=== PATIENT | male | born 1990 | race Caucasian/White ===

== ENCOUNTER 2025-04-17 14:53 | Outpatient (AMB) | payer OTHER, SELFPAY ==
--- OUTSIDE RECORDS SUMMARY | 2025-04-17 14:56 | XMS_ITS ---
Author Organization [facility] Address [address] [facility] [address] [place] [address] Care Team Providers Care Hse Specialist Name Role Phone GENI DOHERTY Unavailable [phone] REASON FOR VISIT Backpain throw it out yesterday picking his daughter up/ asking for refills on cyclobenzaprine/ ketorolac 10 mgs/ patient took one 10 mg at 1 pm MEDICATIONS Medication SIG (Take, Route, Frequency, Duration) Notes Start Date End Date Status Ketorolac Tromethamine 10 MG 1 tablet food or milk as needed Orally three times a day for 10 days Active Cyclobenzaprine HCl 10 MG 1 tablet Orall y Three times a day for 30 days Active PROBLEMS Problem Type ICD Code Onset Dates Problem Status W/U Status Risk SNOMED Code Notes Problem Chronic pain (G89.29) Active confirmed Chronic pain (04433920) VITAL SIGNS Temperature 98.7 degrees Fahrenheit 12/29/19 24 Blood pressure systolic 140 mm Hg 12/29/19 24 Blood pressure diastolic 80 mm Hg 024 Heart Rate 71 /min 12/29/2023 Respiratory Rate 18 /min 12/29/2023 Height 73 in 12/29/2023 Weight 187 lbs 12/29/2023 BMI 24.67 kg/m2 12/29/2023 Oximetry 99 % 12/29/2023 Encounters Encounter Location Date Provider Diagnosis [facility] [address] [facility] [address] [place] [address] 12/29/2023 GENI DOHERTY Acute back pain, unspecified back location, unspecified back pain laterality M54.9 and Chronic pain G89.29 ASSESSMENTS Encounter Date Diagnosis Assessment Notes Treatment Notes Treatment Clinical Notes Section Notes 12/29/2023 Acute back pain, unspecified back location, unspecified back pain laterality (ICD-10 - M54.9) 12/29/2023 Chronic pain (ICD-10 - G89.29) PLAN OF TREATMENT Medication Medication Name Sig Start Date Stop Date Notes Ketorolac Tromethamine 10 MG 1 tablet wi th food or milk as needed Orally three times a day for 10 days Cyclobenzaprine HCl 10 MG 1 tablet Orall y Three times a day for 30 days Progress Notes * EDIE LORENZO DDOB:1990 (33 yo M)Acc No.[id number]:12/29/2023 Progress Notes Patient:??EDIE LORENZO D Provider:??Geni Doherty PA-C :1990?Age:33 Y?Sex:Enedina le Date:12/29/2023 Address:[address] [place] [address] , [id number] Subjective: * Chief Complaints: * ?Backpain throw it out yesterday picking his daughter up/ asking for refills on cyclobenzaprine/ ketorolac 10 mgs/ patient took one 10 mg at 1 pm * ROS:?General/Constitutional:?Change in appetite??denies.??Chills??denies.??Fever??denies.?Ophthalmologic:?Blurred vision??denies.??Discharge??denies.??Eye Pain??denies.?ENT:?Decreased hearing??denies.??Sore throat??denies.??Swollen glands??denies.?Respiratory:?Patient complaining of??Congestion.??Cough??denies.??Shortness of breath at rest??denies.??Shortness of breath with exertion??denies.??Wheezing??denies.?Cardiovascular:?Chest pain at rest??denies.??Chest pain with exertion??denies.??Irregular heartbeat??denies.??Shortness of breath??denies.?Gastrointestinal:?Abdominal pain??denies.??Diarrhea??denies.??Nausea??denies.??Vomiting??denies .?Genitourinary:?Blood in urine??denies.??Difficulty urinating??denies.??Frequent urination??denies.?Musculoskeletal:?Painful joints??denies.??Weakness??denies.?Skin:?Dry skin??denies.??Itching??denies.??Rash??denies.?Neurologic:?Dizziness??denies.??Fainting??denies.??Headache??denies.? * Medical History:?? * Surgical History:??No Surgic al History documented. * Hospitalization/Major Diagno stic Procedure:??No Hospitalization History. * Family History:??No Family H istory documented..?? * Medications:??TakingCycloben zaprine HCl Ketorolac Tromethamine 10 MG Tablet 1 tablet with food or milk as needed Orally every 6 hrs Medication List reviewed and reconciled with the patientTaking Cyclobenzaprine HCl Taking Ketorolac Tromethamine 10 MG Tablet 1 tablet with food or milk as needed Orally every 6 hrs Medication List reviewed and reconciled with the patient * Allergies:??no[Allergies Jerry ified] Objective: * Vitals:??Temp:98.7F, HR:71/m in, BP:140/80mm Hg, Wt:187lbs, BMI:24.67Index, Ht: 73 in, RR:18/min, Oxygen sat %:99%, Ht-cm: 185.42, Wt-k.82. * Examination: ?General Examination: ?GENERAL APPEARANCE:??well developed, well nourished, in no acute distress.?HEAD:??normocephalic, atraumatic.?pupils equal, round, reactive to light and accommodation, sclera non-icteric.?EARS:??normal, BOTH EARS, auditory canal clear, tympanic membrane intact, clear.?THROAT:??no erythema, no exudate, pharynx normal, tonsils normal, uvula midline.?NECK/THYROID:??neck supple, full range of motion, no cervical lymphadenopathy.?SKIN:??warm and dry, no suspicious lesions.?HEART:??regular rate and rhythm, S1, S2 normal, no murmurs.?LUNGS:??clear to auscultation bilaterally.?ABDOMEN:??soft, nontender, nondistended, bowel sounds present, normal.?EXTREMITIES:??no clubbing, cyanosis, or edema.?NEUROLOGIC:??nonfocal, motor strength normal upper and lower extremities, sensory exam intact.? Assessment: * Assessment: 1.??Chronic pain - G89.29??2 .??Acute back pain, unspecified back location, unspecified back pain laterality - M54.9 (Primary)?? Plan: * Treatment: * Procedure Codes:?? * Images: Billing Information: * Visit Code:?? 13636 Office Visit, Est Pt., Level 4. * Procedure Codes:?? * PERSON Sign off status: Completed true * Provider:??Geni Doherty PA-C Date:??12/02 History and Physical Notes * Examination Category Sub-Category Detail Notes Category Not es General Examination GENERAL APPEARANCE: well dev eloped, well nourished, in no acute distress HEAD: normocephalic, atrau matic pupils equal, round, reactive to light and accommodation, sclera non-icteric EARS: normal, BOTH EARS, a uditory canal clear, tympanic membrane intact, clear THROAT: no erythema, no exud ate, pharynx normal, tonsils normal, uvula midline NECK/THYROID: neck supple, full ra nge of motion, no cervical lymphadenopathy HEART: regular rate and rhy thm, S1, S2 normal, no murmurs LUNGS: clear to auscultatio n bilaterally ABDOMEN: soft, nontender, non distended, bowel sounds present, normal NEUROLOGIC: nonfocal, motor stre ngth normal upper and lower extremities, sensory exam intact SKIN: warm and dry, no ac picious lesions EXTREMITIES: no clubbing, cyanosi s, or edema ORAL CAVITY:
--- OUTSIDE RECORDS SUMMARY | 2025-04-17 14:56 | XMS_ITS | Patient Health Record ---
Author Organization [facility] Address [address] [facility] [address] [place] [address] Care Team Providers Care Industrial Illuminating Engineer Name Role Phone GENI DOHERTY Unavailable [phone] ALLERGIES No Known Allergies REASON FOR REFERRAL No Information MEDICATIONS Medication SIG (Take, Route, Frequency, Duration) [...] W/U Status Risk SNOMED Code Notes Problem Anxiety (F41.9) Active confirmed Anxiet y (75066904) Problem Chronic pain (G89.29) Active confirmed Chronic pain (61911257) Problem Anxiety, generalized (F41.1) Active confirmed PLAN OF TREATMENT Pending Test Test Name Order Date CBC With Differential/Platelet Comp. Metabolic Panel (14) 03/23/2023 Insurance Providers Payer Name Payer Address Payer Phone Subscriber Number Group Number Insured Name Patient Relationship to Insured Coverage Start Date Coverage End Date [facility] [address] [place] [address] [phone] [id number] EDIE LORENZO Self - patient is the insured MEDICAL (GENERAL) HISTORY Medical History History ICD Code consistently throwing back out Surgical History Surgery Date(Month/Year)
--- NOTE | 2025-04-17 15:00 | A.OFFPC_ITS ---
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 Required: No Accompanied by: Self / Same As Patient Allergies No Known Allergies Allergy (Verified 04/17/25 15:16) Medication List - Last Reconciled 04/17/25 by Minerva Anton PA-C No Known Home Meds Tobacco use date assessed: 04/17/25 Dental Screening Dental Screen Date: 04/17/25 Did you have a dental visit in the last 12 months?: Yes Did you have a dental problem in the last 6 months where you did not have access to dental care?: No Was dental information given to patient?: Patient has dentist HPI establish care HPI Details The patient is a 34-year-old male presenting elevation new primary care provider patient has a medical history of chronic lower back pain, documented as secondary to lumbar disc herniation. The patient details a history of back pain originating from a lumbar disc herniation at the L5-S1 level, confirmed by MRI findings a year prior. This has manifested with a 5 mm broad-based herniated disc causing lumbar lordosis straightening due to muscle spasm, as well as superimposed bulging discs and an annular tear. Notably, the patient denies experiencing any numbness or incontinence and has not undergone surgical interventions. His pain management strategy includes regular physical therapy, steering clear of high-impact activities, and engaging in biking routines. Cortisone injections were suggested, but the patient currently opts for conservative treatment. The patient also has a history of left knee pain, attributed to a partial medial meniscus tear and anterior cruciate ligament (ACL) sprain, diagnosed via MRI without contrast. This was characterized by a grade two sprain with joint effusion. Additionally, he reports anxiety, which initially developed after the of his daughter and intensified following a friend's from cardiac arrest. Concerns about personal health are heightened by family history of colon cancer and melanoma, contributing to his health-conscious lifestyle choices. 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 - Substance Use: Engages in moderate con sumption of alcohol on weekends. - Exercise: Partakes in regular biking a nd low-impact exercises to manage back and knee pain. - Nutrition: Reports a healthy diet avoi ding unhealthy food choices. - Psychosocial: Reports anxiety associat ed with personal health concerns and family responsibilities. [facility] Medical History (Updated 04/17/25 @ 15:44 by Minerva Anton PA-C) Anxiety Colon cancer screening ACL sprain Tear of meniscus of left knee Chronic low back pain Establishing care with new doctor, encounter for Family history of colon cancer Family history of melanoma Atypical nevi Family History Father BP (high blood pressure) Mother Family history of lung cancer Social History Housing: House Alcohol intake: current Alcohol intake frequency: a few times a week Patient Tobacco Use Status: Never used Tobacco service: Yes Current occupational status: employed Cognitive needs: No Hearing needs: No Vision needs: No Questionnaire PHQ-9 Over the last 2 weeks, how often have you been bothered by any of the following problems? 1. Little interest or pleasure in doing things: not at all 2. Feeling down, depressed, or hopeless: not at all 3. Trouble falling or staying asleep, or sleeping too much: not at all 4. Feeling tired or having little energy: not at all 5. Poor appetite or overeating: not at all 6. Feeling bad about yourself - or that you are a failure or have let yourself or your family down: not at all 7. Trouble concentrating on things, such as reading the newspaper or watching television: not at all 8. Moving or speaking so slowly that other people could have noticed. Or the opposite - being so fidgety or restless that you have been moving around a lot more than usual: not at all 9. Thoughts that you would be better off or of hurting yourself in some way: not at all Total score: 0 Depression Screening Interpretation: Negative Depression Screening Done: Yes 15605 - PHQ-9 Billing: Yes Source: Developed by Drs. Brody Porter, Trice Sneed, Fish Jones and colleagues, with an educational zeb from [employer]. Thrive Questionnaire Date Thrive assessed: 04/17/25 I am a: Patient What is your living situation today?: I have a steady place to live Within the past 12 months, did the food you bought not last and you didn't have the money to get more?: Never true Within the past 12 months, did you worry whether your food would run out before you got money to buy more?: Never true Do you have trouble paying for medicines?: No Do you have trouble getting transportation to medical appointments?: No Do you have trouble paying your heating and electricity bill?: No Do you have trouble taking care of your child, family member or friend?: No Do you have trouble with day-to-day activities such as bathing, preparing meals, shopping, managing finances, etc.?: No Are you currently unemployed and looking for a job?: No Are you interested in more education?: No Please select the resources that you would like help with: None THRIVE Score: 0 AUDIT C Alcohol Use Questionnaire (AUDIT-C) 1. How often do you have a drink containing alcohol?: 2-3 times a week 2. How many drinks containing alcohol do you have on a typical day when you are drinking?: 1 or 2 3. How often do you have six or more drinks on one occasion?: Never Total Score: 3 Score Reviewed/Action Taken: No DEANA-7 AMB Questionnaire DEANA-7 Date DEANA - 7 assessed: 04/17/25 Feeling nervous, anxious, or on edge: 1 = Several days Not being able to stop or control worryin = Several days Worrying too much about different things: 1 = Several days Trouble relaxin = Several days Being so restless that it is hard to sit still: 1 = Several days Becoming easily annoyed or irritable: 1 = Several days Feeling afraid as if something awful might happen: 1 = Several days Total DEANA-7 score (0-4 normal; 5-9 mild; 10-14 moderate; 15-21 severe): 7 Source: Developed by Drs. Brody Porter, Trice Sneed, Fish Jones and colleagues, with an educational zeb from [employer] DEANA-7 Assessment Billing DEANA-7 Assessment Tool: DEANA-7 Assessment 99087 Review of Systems Const Details: - Musculoskeletal: Reports chronic lower back pain and left knee issues. - Neurological: Denies numbness in the lower extremities or incontinence. - Psychiatric: Reports situational anxiety. - Gastrointestinal: Family history of colon cancer (patient denies symptoms). - Integumentary: Family history of melanoma; recent skin check (patient denies current symptoms). Physical exam (Primary Care) Vital Signs: Last Vital Signs Temp 98.5 F 04/17/25 15:04 Pulse 66 04/17/25 15:04 Resp 14 04/17/25 15:04 BP 136/64 04/17/25 15:04 Pulse Ox 100 04/17/25 15:04 Oxygen Delivery Method Room Air 04/17/25 15:04 Care Plan Goal for BP management: <140/90 at Goal BMI result Body Mass Index 24.8 normal bmi Tobacco/Smoking Status: Tobacco use Status Tobacco use date assessed 04/17/25 04/17/25 15:11 Patient Tobacco Use Status Never used Tobacco 04/17/25 15:11 PHQ-9: PHQ-9 Score PHQ-9: Total score 0 04/17/25 15:11 Depression Screening Interpretation: Negative Thrive Assessment: Date of Thrive Assessment Date Thrive assessed 04/17/25 04/17/25 15:11 Const Other: Appearance: Alert. Oriented X3. No acute distress. Head: Normal external exam. Normocephalic. Atraumatic. Eyes: Pupils are equal, round, and reactive to light. Extraocular movements intact. Conjunctiva and sclera normal. Eyelids normal. Ears: External auditory canal normal. Tympanic membranes normal. Throat: Pharynx normal. Uvula midline. Moist mucous membranes. Neck: Normal inspection. Neck supple. Full range of motion. No adenopathy. Thyroid Normal. No meningeal signs. No neck mass noted. Cardiovascular: Normal heart rate and rhythm. Heart sound normal. No murmurs noted. Pulses normal throughout. Respiratory: No respiratory distress. Painless inspiration. Breath sounds normal. No wheezes/rales/rhonchi noted. Chest nontender. No accessory muscle usage noted or decreased air movement noted. Abdomen: Soft and nontender. Bowel sounds normal in all 4 quadrants. No distention noted. No organomegaly noted. No visible injury noted. Back: No costovertebral angle tenderness. Full range of motion noted. Chronic back pain due to subchondral bone marrow edema, straightening of the lumbar lordosis compatible with muscle spasm, L5-S1 broad base herniated disc, and annular tear with broad base herniated disc. Skin: Skin warm and dry. Normal skin color. Normal skin turgor. No rashes/lesions/lacerations noted. Extremities: No lower extremity edema. Left knee with partial medial meniscus tear, sprain of the ACL, and small knee joint effusion. Otherwise all other extremities exhibit normal range of motion nontender. Neuro: Oriented X 3. No motor deficit. No sensory deficit. Reflexes normal. Results Reviewed Results Reviewed: - MRI: Lumbar Spine MRI showing 5 mm broad-based herniated disc at L5-S1, straightening of lumbar lordosis, superimposed bulging discs, and annular tear. Left Knee MRI indicating partial medial meniscus tear and ACL sprain. - Family History Influence: Noted for colon cancer and melanoma risk evaluation. Coding Level of Care Code New Pt Level 4 (33962) Complex EM visit Add On G2211 Diagnoses Establishing care with new doctor, encounter for Z76.89 Family history of colon cancer Z80.0 Family history of melanoma Z80.8 Atypical nevi D22.9 Chronic low back pain M54.50; G89.29 Tear of meniscus of left knee S83.207A ACL sprain S83.519A Anxiety F41.9 Colon cancer screening Z12.11 Additional Codes PHQ-9 - 58170 - PHQ-9 Billing: Yes ([id number]) DEANA-7 Assessment Billing - DEANA-7 Assessment Tool: DEANA-7 Assessment 39858 ([id number]) Assessment & Plan Assessment & Plan (1) Establishing care with new doctor, encounter for: Code(s): Z76.89 - Persons encountering health services in other specified circumstances Category: Medical (2) Family history of colon cancer: Code(s): Z80.0 - Family history of malignant neoplasm of digestive organs Category: Medical Plan: A cologuard test will screen for colorectal cancer, and a dermatology referral supports evaluation for melanoma risk, in light of family history. (3) Family history of melanoma: Code(s): Z80.8 - Family history of malignant neoplasm of other organs or systems Category: Medical Plan: A dermatology referral placed at this time. Condition is chronic and stable continue to monitor. (4) Atypical nevi: Code(s): D22.9 - Melanocytic nevi, unspecified Category: Medical Plan: A dermatology referral placed at this time. Condition is chronic and stable continue to monitor. (5) Chronic low back pain: Code(s): M54.50 - Low back pain, unspecified; G89.29 - Other chronic pain Category: Medical Plan: The patient's lower back pain is managed through physical therapy addressing the herniated disc's symptoms. Avoidance of high-impact activities continues, with surgical consultation considered only if conservative methods fail. Condition is chronic and stable continue to monitor. (6) Tear of meniscus of left knee: Code(s): S83.207A - Unspecified tear of unspecified meniscus, current injury, left knee, initial encounter Category: Medical Plan: Current treatment involves physical therapy. Activities that stress the knee joint are to be minimized, with future interventions considered if conservative strategies prove inadequate. Condition is chronic and stable will continue to monitor. (7) ACL sprain: Code(s): S83.519A - Sprain of anterior cruciate ligament of unspecified knee, initial encounter Category: Medical Plan: Current treatment involves physical therapy. Activities that stress the knee joint are to be minimized, with future interventions considered if conservative strategies prove inadequate. Condition is chronic and stable will continue to monitor. (8) Anxiety: Code(s): F41.9 - Anxiety disorder, unspecified Category: Medical Plan: Anxiety is being managed through lifestyle adjustments and monitoring; potential for therapy or medication if symptoms worsen is noted. Condition is chronic and stable continue to monitor. (9) Colon cancer screening: Code(s): Z12.11 - Encounter for screening for malignant neoplasm of colon Category: Medical Plan: A Cologuard test will screen for colorectal cancer, and a dermatology referral supports evaluation for melanoma risk, in light of family history. Plan Plan Patient was informed and verbally consented to the use of an ambient scribe for clinic note documentation during this visit. 1. Chronic Lower Back Pain The patient's lower back pain is managed through physical therapy addressing the herniated disc's symptoms. Avoidance of high-impact activities continues, with surgical consultation considered only if conservative methods fail. 2. Left Knee Meniscus Tear And Acl Sprain Current treatment involves physical therapy. Activities that stress the knee joint are to be minimized, with future interventions considered if conservative strategies prove inadequate. 3. Anxiety Anxiety is being managed through lifestyle adjustments and monitoring; potential for therapy or medication if symptoms worsen is noted. 4. Colon Cancer And Melanoma Screening A Cologuard test will screen for colorectal cancer, and a dermatology referral supports evaluation for melanoma risk, in light of family history. I discussed with the patient his chronic lower back pain and left knee issues. We reviewed existing MRI findings indicating lumbar herniation and knee sprain and outlined a conservative treatment approach with physical therapy as a cornerstone. We discussed avoiding injections and holding off on surgical intervention unless symptoms worsen. We touched on anxiety management strategies, considering family health conditions and connections. Screening for colon cancer using a Cologuard test was explained, reflecting the family history, and a dermatology referral was provided for melanoma screening. I emphasized moderation and vigilance in lifestyle choices to support health maintenance. The patient is advised to follow up in six months or as needed for acute concerns, ensuring comfort with this management plan. Orders: Orders C Reactive Protein Today Z00.00 - Encounter for general adult medical examination without abnormal findings Complete Blood Count Auto Diff Today Z00.00 - Encounter for general adult medical examination without abnormal findings Comprehensive [place]. Panel Fast Today Z00.00 - Encounter for general adult medical examination without abnormal findings Lipid Panel Today Z00.00 - Encounter for general adult medical examination without abnormal findings PSA,Total (Free>4and<10) Today Z00.00 - Encounter for general adult medical examination without abnormal findings TSH reflex Free T4 Today Z00.00 - Encounter for general adult medical examination without abnormal findings Magnesium Today Z00.00 - Encounter for general adult medical examination without abnormal findings Liver Panel Today Z00.00 - Encounter for general adult medical examination without abnormal findings Hemoglobin A1c Today Z00.00 - Encounter for general adult medical examination without abnormal findings Vitamin B12 and Folate Today Z00.00 - Encounter for general adult medical examination without abnormal findings Vitamin D 25-OH Total Today Z00.00 - Encounter for general adult medical examination without abnormal findings Referrals Dermatology Referral D22.9 - Melanocytic nevi, unspecified, Z80.8 - Family history of malignant neoplasm of other organs or systems Cologuard Test Z12.11 - Encounter for screening for malignant neoplasm of colon, Z12.12 - Encounter for screening for malignant neoplasm of rectum Patient Instructions: - Continue physical therapy for back and knee pain. - Avoid heavy lifting and high-impact activities. - Practice stress reduction techniques for anxiety. - Follow a healthy diet and limit alcohol consumption to weekends. - Schedule colon cancer screening test as advised. - Contact a fiber optics supervisor for skin evaluation. - Return for routine check-ups or sooner if symptoms change.
[2025-04-17 15:04] VITALS: BP 136/64; PULSE 66; RESP 14; TEMP 36.9; O2SAT 100; BMI 24.8
== END 2025-04-17 15:36 | disposition home or self-care (01) ==
LOC: HO.HMCSH 14:53
PROVIDERS: PCP Internal Medicine; Visit Provider Physician Assistant Medical
DX: Z76.89 Persons encountering health services in other specified circumstances (principal); Z80.0 Family history of malignant neoplasm of digestive organs; Z80.8 Family history of malignant neoplasm of other organs or systems; D22.9 Melanocytic nevi, unspecified; M54.50 Low back pain, unspecified; G89.29 Other chronic pain; S83.207A Unspecified tear of unspecified meniscus, current injury, left knee, initial encounter; S83.519A Sprain of anterior cruciate ligament of unspecified knee, initial encounter; F41.9 Anxiety disorder, unspecified; Z12.11 Encounter for screening for malignant neoplasm of colon

== ENCOUNTER → 2025-04-17 14:53 | Outpatient (BNVA) | payer OTHER, SELFPAY | PROVIDERS: PCP Internal Medicine; Visit Provider Physician Assistant Medical | DX: D22.9 Melanocytic nevi, unspecified (principal); M54.50 Low back pain, unspecified; G89.29 Other chronic pain; F41.9 Anxiety disorder, unspecified; S83.207D Unspecified tear of unspecified meniscus, current injury, left knee, subsequent encounter; S83.512D Sprain of anterior cruciate ligament of left knee, subsequent encounter; Z76.89 Persons encountering health services in other specified circumstances; Z80.0 Family history of malignant neoplasm of digestive organs; Z80.8 Family history of malignant neoplasm of other organs or systems | CPT/HCPCS: 96127; 99202 ==

== ENCOUNTER 2025-04-20 06:07 | Outpatient (REF) | payer OTHER, SELFPAY ==
--- OUTSIDE RECORDS SUMMARY | 2025-04-20 06:12 | XMS_ITS | Patient Health Record ---
Author Organization [facility] Address [address] [place] [address] Care Team Providers Care Physical Science Technician Name Role Phone GENI DOHERTY Unavailable [phone] ALLERGIES No Known Allergies REASON FOR REFERRAL [...] Problem Anxiety (F41.9) Active confirmed Anxiet y (04250966) Problem Chronic pain (G89.29) Active confirmed Chronic pain (20932238) Problem Anxiety, generalized (F41.1) Active confirmed Generalized anxiety disorder (96496006) PLAN OF TREATMENT Pending Test Test Name Order Date CBC With Differential/Platelet Comp. Metabolic Panel (14) 03/23/2023 Insurance Providers Payer Name Payer Address Payer Phone Subscriber Number Group Number Insured Name Patient Relationship to Insured Coverage Start Date Coverage End Date [facility] [address] [place] [address] [id number] EDIE LORENZO Self - patient is the insured MEDICAL (GENERAL) HISTORY Medical History History ICD Code consistently throwing back out Surgical History Surgery Date(Month/Year)
--- OUTSIDE RECORDS SUMMARY | 2025-04-20 06:12 | XMS_ITS ---
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 Role Phone GENI DOHERTY Unavailable [phone] REASON FOR VISIT Backpain throw it out [...] Chronic pain (G89.29) Active confirmed Chronic pain (10269391) VITAL SIGNS Temperature 98.7 degrees Fahrenheit 12/29/19 24 Blood pressure systolic 140 mm Hg 12/29/19 24 Blood pressure diastolic 80 mm Hg 024 Heart Rate 71 /min 12/29/2023 Respiratory Rate 18 /min 12/29/2023 Height 73 in 12/29/2023 Weight 187 lbs 12/29/2023 BMI 24.67 kg/m2 12/29/2023 Oximetry 99 % 12/29/2023 Encounters Encounter Location Date Provider Diagnosis [facility] [address] [facility] [address] [place] [address] 12/29/2023 GENI DOHERTY Acute back pain, unspecified [...] * EDIE LORENZO DDOB:1990 (33 yo M)Acc No.[id number]:12/29/2023 Progress Notes Patient:??EDIE LORENZO D Provider:??Geni Doherty PA-C :1990?Age:33 Y?Sex:Enedina le Date:12/29/2023 Address:[address] [place] [address] , [facility] [id number] Subjective: * Chief Complaints: * ?Backpain throw [...] * Images: Billing Information: * Visit Code:?? 63938 Office Visit, Est Pt., Level 4. * Procedure Codes:?? * RIG ROUGHNECK Sign off status: Completed true * Provider:??Geni [...]
[2025-04-20 10:16] LABS: MANUAL DIFF FLAG NO
[2025-04-20 10:26] LABS: Basophils Absolute Auto 0.1 X10*3/uL (0.0-0.2); Basophils Percent Auto 1.5 % (0-2); Eosinophils Absolute Auto 0.3 X10*3/uL (0.0-0.4); Eosinophils Percent Auto 5.1 % (0-4); Hematocrit 42.6 % (42.0-52.0); Hemoglobin 14.8 g/dl (14.0-18.0); Imm Gran Abs Auto 0.01 X10*3/uL (0.00-0.03); Imm Gran Pct Auto 0.2 % (0.0-0.4); Lymphocytes Percent Auto 37.9 % (20-40); Mean Corpuscular HGB Conc 34.7 g/dl (31.0-36.0); Mean Corpuscular Hemoglobin 30.5 pg (27.0-33.0); Mean Corpuscular Volume 87.8 fL (80.0-98.0); Monocytes Absolute Auto 0.5 X10*3/uL (0.1-1.2); Monocytes Percent Auto 9.8 % (2-11); Neutrophils Absolute Auto 2.4 x10*3/uL (2.0-8.3); Neutrophils Percent Auto 45.5 % (45-73); Platelet Count 317 X10*3/uL (160-400); Red Blood Count 4.85 X10*6/uL (4.60-5.80); Red Cell Distribution Width 12.4 % (11.0-16.0); White Blood Count 5.3 X10*3/uL (4.8-10.8)
[2025-04-20 11:12] LABS: Estimated Average Glucose 85 mg/dL; Hemoglobin A1C 102.7785 umol/L; Hemoglobin A1c % 4.6 % (<6.0); Total Hemoglobin (HGBA1C) 3833.1061 umol/L
[2025-04-20 11:29] LABS: Folate 8.5 ng/mL (> or = 4.0); Vitamin B12 389 pg/mL (200-900)
[2025-04-20 11:33] LABS: Alanine Aminotransferase 36 U/L (0-40); Albumin Level 4.8 g/dL (3.5-5.0); Alkaline Phosphatase 57 U/L (39-117); Anion Gap 12 (12-20); Aspartate Amino Transferase 28 U/L (5-37); Bilirubin Direct 0.2 mg/dL (0.0-0.5); Bilirubin Total 0.6 mg/dL (0.0-1.0); Blood Urea Nitrogen 13 mg/dL (9-16); C Reactive Protein < 0.10 mg/dL (< or = 0.50); Calcium 9.8 mg/dL (8.4-10.2); Carbon Dioxide 27 mmol/L (22-29); Chloride 105 mmol/L (96-108); Cholesterol 219 mg/dL (<200); Estimated Glomerular Filt Rate > 60; Glucose Fasting 94 mg/dL (60-99); HDL Cholesterol 61 mg/dL (>40); LDL Cholesterol Calculated 132 mg/dL (<100); Potassium 4.1 mmol/L (3.3-5.1); Sodium 140 mmol/L (135-145); Total Protein 7.7 g/dL (6.5-8.0); Triglycerides 130 mg/dL (<150)
[2025-04-20 11:39] LABS: TSH reflex Free T4 2.16 uIU/mL (0.32-4.0); Vitamin D 25-OH Total 91.9 ng/mL (>30)
[2025-04-20 12:26] LABS: PSA,Total (Free>4and<10) 0.75 ng/mL (0.00-4.00)
== END 2025-04-20 06:08 | disposition home or self-care (01) ==
LOC: HO.HMGCLDS 06:07
PROVIDERS: Visit Provider Physician Assistant Medical
DX: Z00.00 Encounter for general adult medical examination without abnormal findings (principal); Z13.1 Encounter for screening for diabetes mellitus; Z13.6 Encounter for screening for cardiovascular disorders
CPT/HCPCS: 36415; 80053; 80061; 80076; 82248; 82306; 82607; 82746; 83036; 83735; 84153; 84443; 85025; 86140

== ENCOUNTER 2025-05-24 09:03 | Outpatient (AMB) | payer OTHER, SELFPAY ==
[2025-05-24 09:08] VITALS: BP 136/92; PULSE 74; RESP 20; TEMP 37.3; O2SAT 98; BMI 25.2
--- NOTE | 2025-05-24 09:08 | MHC.PC.OV ---
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 Required: No Accompanied by: Self / Same As Patient Allergies No Known Allergies Allergy (Verified 05/24/25 09:34) Medication List - Last Reconciled 05/24/25 by Minerva Anton PA-C No Known Home Meds Tobacco use date assessed: 04/17/25 Dental Screening Dental Screen Date: 04/17/25 Did you have a dental visit in the last 12 months?: Yes Did you have a dental problem in the last 6 months where you did not have access to dental care?: No Was dental information given to patient?: Patient has dentist HPI f/u back pain HPI Details The patient is a 35-year-old male presenting with chronic back pain,documented as secondary to lumbar disc herniation. The patient details a history of back pain originating from a lumbar disc herniation at the L5-S1 level, confirmed by MRI findings a year prior. This has manifested with a 5 mm broad-based herniated disc causing lumbar lordosis straightening due to muscle spasm, as well as superimposed bulging discs and an annular tear. Notably, the patient denies experiencing any numbness or incontinence and has not undergone surgical interventions. His pain management strategy includes regular physical therapy, steering clear of high-impact activities, and engaging in biking routines. Cortisone injections were suggested, but the patient currently opts for conservative treatment. The back pain has been significant enough to warrant physical therapy at [facility], although attendance has been limited due to other commitments. Recently, the has decided to medically separate the patient due to the back condition, which he has accepted as beneficial for his health. The patient is in the process of documenting his condition for medical prison and VA benefits. He requires a work restriction profile to outline his limitations due to the back injury. Social History - Employment: Currently employed but facing medical separation from the due to back pain. [facility] Medical History Annular tear of lumbar disc Lumbar disc herniation Pure hypercholesterolemia, unspecified Hyperlipidemia LDL goal <100 Anxiety Colon cancer screening ACL sprain Tear of meniscus of left knee Chronic low back pain Establishing care with new doctor, encounter for Family history of colon cancer Family history of melanoma Atypical nevi Family History Father BP (high blood pressure) Mother Family history of lung cancer Social History Housing: House Alcohol intake: current Alcohol intake frequency: a few times a week Patient Tobacco Use Status: Never used Tobacco service: Yes Current occupational status: employed Cognitive needs: No Hearing needs: No Vision needs: No Questionnaire PHQ-9 Over the last 2 weeks, how often have you been bothered by any of the following problems? 1. Little interest or pleasure in doing things: not at all 2. Feeling down, depressed, or hopeless: not at all 3. Trouble falling or staying asleep, or sleeping too much: not at all 4. Feeling tired or having little energy: not at all 5. Poor appetite or overeating: not at all 6. Feeling bad about yourself - or that you are a failure or have let yourself or your family down: not at all 7. Trouble concentrating on things, such as reading the newspaper or watching television: not at all 8. Moving or speaking so slowly that other people could have noticed. Or the opposite - being so fidgety or restless that you have been moving around a lot more than usual: not at all 9. Thoughts that you would be better off or of hurting yourself in some way: not at all Total score: 0 Depression Screening Interpretation: Negative Depression Screening Done: Yes 39891 - PHQ-9 Billing: Yes Source: Developed by Drs. Brody Porter, Trice Sneed, Fish Jones and colleagues, with an educational zeb from [employer] Thrive Questionnaire Date Thrive assessed: 04/17/25 I am a: Patient What is your living situation today?: I have a steady place to live Within the past 12 months, did the food you bought not last and you didn't have the money to get more?: Never true Within the past 12 months, did you worry whether your food would run out before you got money to buy more?: Never true Do you have trouble paying for medicines?: No Do you have trouble getting transportation to medical appointments?: No Do you have trouble paying your heating and electricity bill?: No Do you have trouble taking care of your child, family member or friend?: No Do you have trouble with day-to-day activities such as bathing, preparing meals, shopping, managing finances, etc.?: No Are you currently unemployed and looking for a job?: No Are you interested in more education?: No Please select the resources that you would like help with: None THRIVE Score: 0 AUDIT C Alcohol Use Questionnaire (AUDIT-C) 1. How often do you have a drink containing alcohol?: 2-3 times a week 2. How many drinks containing alcohol do you have on a typical day when you are drinking?: 1 or 2 3. How often do you have six or more drinks on one occasion?: Never Total Score: 3 Score Reviewed/Action Taken: No DEANA-7 AMB Questionnaire DEANA-7 Date DEANA - 7 assessed: 04/17/25 Feeling nervous, anxious, or on edge: 1 = Several days Not being able to stop or control worryin = Several days Worrying too much about different things: 1 = Several days Trouble relaxin = Several days Being so restless that it is hard to sit still: 1 = Several days Becoming easily annoyed or irritable: 1 = Several days Feeling afraid as if something awful might happen: 1 = Several days Total DEANA-7 score (0-4 normal; 5-9 mild; 10-14 moderate; 15-21 severe): 7 Source: Developed by Drs. Brody Porter, Trice Sneed, Fish Jones and colleagues, with an educational zeb from [employer] DEANA-7 Assessment Billing DEANA-7 Assessment Tool: DEANA-7 Assessment 47751 Physical exam (Primary Care) Vital Signs: Last Vital Signs Temp 99.1 F 05/24/25 09:08 Pulse 74 05/24/25 09:08 Resp 20 05/24/25 09:08 BP 136/92 H 05/24/25 09:08 Pulse Ox 98 05/24/25 09:08 Oxygen Delivery Method Room Air 05/24/25 09:08 BMI result Body Mass Index 25.2 Tobacco/Smoking Status: Tobacco use Status Tobacco use date assessed 04/17/25 05/24/25 09:18 Patient Tobacco Use Status Never used Tobacco 05/24/25 09:18 PHQ-9: PHQ-9 Score PHQ-9: Total score 0 05/24/25 09:18 Depression Screening Interpretation: Negative Thrive Assessment: Date of Thrive Assessment Date Thrive assessed 04/17/25 05/24/25 09:18 Const Other: Appearance: Alert. Oriented X3. No acute distress. Head: Normal external exam. Normocephalic. Atraumatic. Eyes: Pupils are equal, round, and reactive to light. Extraocular movements intact. Conjunctiva and sclera normal. Eyelids normal. Throat: Pharynx normal. Uvula midline. Moist mucous membranes. Neck: Normal inspection. Neck supple. Full range of motion. Cardiovascular: Normal heart rate and rhythm. Respiratory: No respiratory distress. Painless inspiration. Back: Full range of motion noted. Chronic back pain. Skin: Skin warm and dry. Normal skin color. Normal skin turgor. No rashes/lesions/lacerations noted. Extremities: Extremities exhibit normal range of motion. Neuro: Oriented X 3. No motor deficit. No sensory deficit. Reflexes normal. Coding Level of Care Code Est Pt Level 4 (96565) Complex EM visit Add On G2211 Diagnoses Chronic low back pain M54.50; G89.29 Lumbar disc herniation M51.26 Annular tear of lumbar disc M51.369 ACL sprain S83.519A Tear of meniscus of left knee S83.207A Additional Codes DEANA-7 Assessment Billing - DEANA-7 Assessment Tool: DEANA-7 Assessment 62821 ([id number]) PHQ-9 - 57018 - PHQ-9 Billing: Yes ([id number]) Assessment & Plan Assessment & Plan (1) Chronic low back pain: Code(s): M54.50 - Low back pain, unspecified; G89.29 - Other chronic pain Category: Medical Plan: The patient will continue with physical therapy as tolerated and is advised to document all medical interactions and treatments for VA benefits and medical prison purposes. A work restriction profile will be provided to outline limitations due to the back injury. Condition is chronic and stable will continue to monitor. (2) Lumbar disc herniation: Code(s): M51.26 - Other intervertebral disc displacement, lumbar region Category: Medical Plan: The patient will continue with physical therapy as tolerated and is advised to document all medical interactions and treatments for VA benefits and medical prison purposes. A work restriction profile will be provided to outline limitations due to the back injury. Condition is chronic and stable will continue to monitor. (3) Annular tear of lumbar disc: Code(s): M51.369 - Other intervertebral disc degeneration, lumbar region without mention of lumbar back pain or lower extremity pain Category: Medical Plan: The patient will continue with physical therapy as tolerated and is advised to document all medical interactions and treatments for VA benefits and medical prison purposes. A work restriction profile will be provided to outline limitations due to the back injury. Condition is chronic and stable will continue to monitor. (4) ACL sprain: Code(s): S83.519A - Sprain of anterior cruciate ligament of unspecified knee, initial encounter Category: Medical Plan: Patient will refer to PT therapy. Condition is chronic and stable will continue to monitor. (5) Tear of meniscus of left knee: Code(s): S83.207A - Unspecified tear of unspecified meniscus, current injury, left knee, initial encounter Category: Medical Plan: Patient will refer to PT therapy. Condition is chronic and stable will continue to monitor. Plan Plan Patient was informed and verbally consented to the use of an ambient scribe for clinic note documentation during this visit. 1. Chronic Back Pain The patient will continue with physical therapy as tolerated and is advised to document all medical interactions and treatments for VA benefits and medical prison purposes. A work restriction profile will be provided to outline limitations due to the back injury. During the visit, we discussed the patient's chronic back pain and the need for continued physical therapy. We also talked about the 's decision to medically separate him and the importance of documenting his condition for VA benefits and medical prison. A work restriction profile was deemed necessary to outline his limitations. Orders: Orders PT Evaluation and Treatment Today G89.29 - Other chronic pain, M54.50 - Low back pain, unspecified, S83.207A - Unspecified tear of unspecified meniscus, current injury, left knee, initial encounter, S83.519A - Sprain of anterior cruciate ligament of unspecified knee, initial encounter Patient Instructions: - Continue attending physical therapy sessions as scheduled. - Document all medical interactions and treatments for VA benefits and medical prison purposes. - Obtain a work restriction profile to outline limitations due to back injury.
--- OUTSIDE RECORDS SUMMARY | 2025-05-24 09:45 | XMS_ITS | Patient Health Record ---
Author Organization [facility] Address [address] [place] [address] Care Team Providers Care Tire Mounter Name Role Phone GENI DOHERTY Unavailable [phone] Allergies No Known Allergies Reason For Referral No Information Medications Medication SIG (Take, Route, Frequency, Duration) Notes Start Date End Date Status Ketorolac Tromethamine 10 MG 1 tablet wi th food or milk as needed Orally three times a day for 10 days Active Cyclobenzaprine HCl 10 MG 1 tablet Orall y Three times a day for 30 days Active Problems Problem Type SNOMED Code ICD Code Onset Dates Problem Status W/U Status Risk Notes Problem Anxiety (14804390) Anxiety (F41.9) Active confirmed Problem Chronic pain (G89.29) Active confirmed Problem Generalized anxiety disorder (83519876) Anxiety, generalized (F41.1) Active confirmed Plan Of Treatment Pending Test Test Name Order Date CBC With Differential/Platelet Comp. Metabolic Panel (14) 03/23/2023 Insurance Providers Payer Name Payer Address Payer Phone Subscriber Number Group Number Insured Name Patient Relationship to Insured Coverage Start Date Coverage End Date [facility] [address] [place] [address] [id number] EDIE LORENZO Self - patient is the insured Medical (General) History Medical History History ICD Code consistently throwing back out Surgical History Surgery Date(Month/Year)
== END 2025-05-24 09:33 | disposition home or self-care (01) ==
LOC: HO.HMCSH 09:03
PROVIDERS: PCP Internal Medicine; Visit Provider Physician Assistant Medical
DX: S83.512A Sprain of anterior cruciate ligament of left knee, initial encounter (principal); S83.207A Unspecified tear of unspecified meniscus, current injury, left knee, initial encounter; G89.29 Other chronic pain; M51.26 Other intervertebral disc displacement, lumbar region; M51.369 Other intervertebral disc degeneration, lumbar region without mention of lumbar back pain or lower extremity pain

== ENCOUNTER → 2025-05-24 09:03 | Outpatient (BNVA) | payer OTHER, SELFPAY | PROVIDERS: PCP Internal Medicine; Visit Provider Physician Assistant Medical | DX: M54.50 Low back pain, unspecified (principal); G89.29 Other chronic pain; M51.369 Other intervertebral disc degeneration, lumbar region without mention of lumbar back pain or lower extremity pain; S83.512D Sprain of anterior cruciate ligament of left knee, subsequent encounter; S83.207D Unspecified tear of unspecified meniscus, current injury, left knee, subsequent encounter | CPT/HCPCS: 96127; 99212 ==

== ENCOUNTER 2025-09-19 09:00 | Outpatient (RCR) | payer OTHER, SELFPAY ==
--- NOTE | 2025-07-10 08:44 | MHC.PT.EP ---
[facility] [place] [facility] [place] Office [place] Office [address] Kika Nelson [address] [phone] F: [phone] F: [phone] F: [phone] F: [phone] Physical Therapy Plan of Care Date of Evaluation: 07/10/25 Date of Surgery: n/a Diagnosis: ACL sprain, meniscus tear, L knee Assessment: Patient is a 35 year old male presenting to PT with complaints of pain in his L knee. Pt reports onset of pain began 2019 due to stepping off a plane. He presents today with impairments in pain, tenderness to palpation, knee strength, hip strength, muscle length . 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 Pt expresses skilled nursing goal of reducing pain, and is motivated to work towards this in PT. Clinical presentation today is most consistent with signs and sx associated with L knee ACL sprain, meniscus tear and pt will benefit from skilled PT 2 week x 4 weeks to address the following problems and impairments noted upon evaluation: palpation, knee strength, hip strength, muscle length. These problems limit the patient with the following functional activities: ADLs, standing, ambulating. The prescribed treatment plan of care is medically necessary. Co-morbidities of anxiety were identified and taken into considerations of plan of care. Pt was educated on HEP, role of PT, prognosis, POC. Frequency and Duration: The patient will be seen 2 x week x 4 weeks Short Term Goals: Pt will demonstrate improved pain to <2/10 at rest in 2 weeks. Pt will demonstrate 5/5 L knee MMT strength in 2 weeks. Pt will demonstrate improved hip MMT strength by 1/3 grade in 2 weeks. Penitentiary Goals: Pt will demonstrate improved LEFI score by 9 points in 4 weeks for improved functional mobility. Pt will demonstrate ability to ambulate prolonged distances with min to no pain in 4 weeks for return to PLOF. Pt will demonstrate ability to squat and complete ADLs with min to no pain in 4 weeks for return to PLOF. Treatment Plan: Modalities to reduce pain, spasms and effusion. Manual therapy to restore motion and function. Therapeutic exercise to improve strength and flexibility. Neuromuscular re-education for posture and balance. Therapeutic activities to return to functional activities of daily living. Electronically signed by: Addie Woods, PT, DPT, ATC Please sign and return to therapist. Thank you for your referral.
--- NOTE | 2025-09-19 10:19 | MHC.PT.DC ---
[facility] [place] Office [place] Office [place] Office [address] Kika Nelson [address] [phone] F: [phone] F: [phone] F: [phone] F: [phone] Physical Therapy Discharge Report Diagnosis: ACL sprain, meniscus tear, L knee Date of Surgery: n/a Date of Evaluation: 07/10/25 Date of Discharge: 09/19/25 Treatments to Date: 15 Cancellations to Date: 5 No Shows to Date: 0 Discharge Status: Independent with HEP Recommend MD Follow-up Discharge Summary: 09/19/2025: Pt has made some progress since start of care in terms of strength and soft tissue flexibility. Unfortunately he continues to have ongoing pain which is affecting his ability to ambulate, squat, negotiate stairs, work, and complete ADLs at his PLOF. He is especially sore when doing higher level activities. We have trialed a variety of treatment interventions during this course of therapy all without significant change in his functional status. At this time max benefits of PT have been provided and skilled PT is no longer indicated. Pt should continue with strengthening exercises to maintain all strength gains. Pt is in agreement with d/c today and is following up with his MD next week. Electronically signed by: Addie Woods, PT, DPT, ATC Please sign and return to therapist. Thank you for your referral.
== END 2025-09-19 10:20 | disposition home or self-care (01) ==
LOC: HO.PTCHIC 09:00
PROVIDERS: PCP Internal Medicine; Visit Provider Physician Assistant Medical
DX: S83.207D Unspecified tear of unspecified meniscus, current injury, left knee, subsequent encounter (principal); S83.519D Sprain of anterior cruciate ligament of unspecified knee, subsequent encounter
CPT/HCPCS: 97110; 97112; 97140; 97161

== ENCOUNTER 2025-09-25 09:00 | Outpatient (AMB) | payer OTHER, SELFPAY ==
[2025-09-25 09:09] VITALS: BP 138/80; PULSE 60; RESP 14; TEMP 36.8; O2SAT 99; BMI 25.6
--- NOTE | 2025-09-25 09:09 | A.OFFPC_ITS ---
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 He reports pain in the heel and arch of both feet for a while, which he attributes to prolonged standing in boots during his career. The pain is described as stiff, tight, and is worse in the morning, loosening through the day but exacerbated by activities such as biking. The patient reports worsening anxiety over the past few months and is in therapy for PTSD and anxiety at a [facility]. He denies any suicidal or homicidal ideation or auditory hallucinations. The patient also has several musculoskeletal complaints and is undergoing medical fdc. He reports ongoing left knee pain, which has only slightly improved after completing a course of physical therapy, and continues to int erfere with daily activities. He is also currently in physical therapy for his back. He reports new, significant pain in his right knee, which severely impacted his ability to stand and walk the previous day, though he denies any acute injury. 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 - Functional Status: Reports his left kn ee pain interferes with day-to-day activities, and recent right knee pain made it difficult to stand and walk. [facility] Medical History (Updated 09/25/25 @ 09:43 by Minerva Anton PA-C) Plantar fasciitis Plantar fasciitis, bilateral Right knee pain PTSD (post-traumatic stress disorder) Annular tear of lumbar disc Lumbar disc herniation Pure hypercholesterolemia, unspecified Hyperlipidemia LDL goal <100 Anxiety Colon cancer screening ACL sprain Tear of meniscus of left knee Chronic low back pain Establishing care with new doctor, encounter for Family history of colon cancer Family history of melanoma Atypical nevi Family History Father BP (high blood pressure) Mother Family history of lung cancer Social History Housing: House Alcohol intake: current Alcohol intake frequency: a few times a week Patient Tobacco Use Status: Never used Tobacco service: Yes Current occupational status: employed Cognitive needs: No Hearing needs: No Vision needs: No Questionnaire PHQ-9 Over the last 2 weeks, how often have you been bothered by any of the following problems? 1. Little interest or pleasure in doing things: not at all 2. Feeling down, depressed, or hopeless: not at all 3. Trouble falling or staying asleep, or sleeping too much: not at all 4. Feeling tired or having little energy: not at all 5. Poor appetite or overeating: not at all 6. Feeling bad about yourself - or that you are a failure or have let yourself or your family down: not at all 7. Trouble concentrating on things, such as reading the newspaper or watching television: not at all 8. Moving or speaking so slowly that other people could have noticed. Or the opposite - being so fidgety or restless that you have been moving around a lot more than usual: not at all 9. Thoughts that you would be better off or of hurting yourself in some way: not at all Total score: 0 Depression Screening Interpretation: Negative Depression Screening Done: Yes 35243 - PHQ-9 Billing: Yes Source: Developed by Drs. Brody Porter, Trice Sneed, Fish Jones and colleagues, with an educational zeb from [employer]. Thrive Questionnaire Date Thrive assessed: 04/17/25 I am a: Patient What is your living situation today?: I have a steady place to live Within the past 12 months, did the food you bought not last and you didn't have the money to get more?: Never true Within the past 12 months, did you worry whether your food would run out before you got money to buy more?: Never true Do you have trouble paying for medicines?: No Do you have trouble getting transportation to medical appointments?: No Do you have trouble paying your heating and electricity bill?: No Do you have trouble taking care of your child, family member or friend?: No Do you have trouble with day-to-day activities such as bathing, preparing meals, shopping, managing finances, etc.?: No Are you currently unemployed and looking for a job?: No Are you interested in more education?: No Please select the resources that you would like help with: None THRIVE Score: 0 AUDIT C Alcohol Use Questionnaire (AUDIT-C) 1. How often do you have a drink containing alcohol?: 2-3 times a week 2. How many drinks containing alcohol do you have on a typical day when you are drinking?: 1 or 2 3. How often do you have six or more drinks on one occasion?: Never Total Score: 3 Score Reviewed/Action Taken: No DEANA-7 AMB Questionnaire DEANA-7 Date DEANA - 7 assessed: 04/17/25 Feeling nervous, anxious, or on edge: 1 = Several days Not being able to stop or control worryin = Several days Worrying too much about different things: 1 = Several days Trouble relaxin = Several days Being so restless that it is hard to sit still: 1 = Several days Becoming easily annoyed or irritable: 1 = Several days Feeling afraid as if something awful might happen: 1 = Several days Total DEANA-7 score (0-4 normal; 5-9 mild; 10-14 moderate; 15-21 severe): 7 Source: Developed by Drs. Brody Porter, Trice Sneed, Fish Jones and colleagues, with an educational zeb from [employer]. 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 - Functional Status: Reports his left knee pain interferes with day-to-day activities, and recent right knee pain made it difficult to stand and walk. All systems reviewed & are unremarkable except as noted in HPI and below Physical exam (Primary Care) Vital Signs: Last Vital Signs Temp 98.2 F 09/25/25 09:09 Pulse 60 09/25/25 09:09 Resp 14 09/25/25 09:09 BP 138/80 09/25/25 09:09 Pulse Ox 99 09/25/25 09:09 Oxygen Delivery Method Room Air 09/25/25 09:09 Care Plan Goal for BP management: <140/90 at Goal BMI result Body Mass Index 25.6 BMI Assessment/Plan discussion: High BMI High, discussed plan: lifestyle, weight reduction, dietary, physical activity, alcohol moderation and other Tobacco/Smoking Status: Tobacco use Status Tobacco use date assessed 04/17/25 09/25/25 09:12 Patient Tobacco Use Status Never used Tobacco 09/25/25 09:12 PHQ-9: PHQ-9 Score PHQ-9: Total score 0 09/25/25 09:12 Depression Screening Interpretation: Negative Thrive Assessment: Date of Thrive Assessment Date Thrive assessed 04/17/25 09/25/25 09:12 Const Other: Appearance: Alert. Oriented X3. No acute distress. Head: Normal external exam. Normocephalic. Atraumatic. Eyes: Pupils are equal, round, and reactive to light. Extraocular movements intact. Conjunctiva and sclera normal. Eyelids normal. Throat: Pharynx normal. Uvula midline. Moist mucous membranes. Neck: Normal inspection. Neck supple. Full range of motion. Cardiovascular: Normal heart rate and rhythm. Respiratory: No respiratory distress. Painless inspiration. Back: Full range of motion noted. Skin: Skin warm and dry. Normal skin color. Extremities: No lower extremity edema. Patient reports pain in both feet, particularly in the heel and arch area, suggestive of plantar fasciitis. Right knee pain that the prepatellar aspect. Patient has normal range of motion of the right knee no obvious ligamentous or tendon injury noted. No joint effusion. No signs of infection. Patient reports improving left knee pain. Has good range of motion to the left knee. There is no lower extremity edema bilaterally or calf tenderness. Achilles tendons are intact. All other extremities exhibit normal range of motion and nontender at this time. Results Reviewed Results Reviewed: - Imaging: Patient mentions a prior MRI of the left knee; results were not reviewed. Coding Level of Care Code Est Pt Level 4 (81115) Complex EM visit Add On G2211 Diagnoses Plantar fasciitis M72.2 Anxiety F41.9 PTSD (post-traumatic stress disorder) F43.10 Right knee pain M25.561 Chronic low back pain M54.50; G89.29 Tear of meniscus of left knee S83.207A Additional Codes DEANA-7 Assessment Billing - DEANA-7 Assessment Tool: DEANA-7 Assessment 20938 ([id number]) PHQ-9 - 88535 - PHQ-9 Billing: Yes ([id number]) Assessment & Plan Assessment & Plan (1) Plantar fasciitis: Code(s): M72.2 - Plantar fascial fibromatosis Category: Medical Plan: The patient's symptoms of bilateral heel and arch pain, which are worse upon waking and after rest, are highly suggestive of plantar fasciitis, likely resulting from his career involving prolonged standing. A referral will be placed to podiatry for further evaluation and management. In the interim, the patient is advised to try [id number] shoe inserts and self-massage by rolling his foot on a ball. (2) Anxiety: Code(s): F41.9 - Anxiety disorder, unspecified Category: Medical Plan: The patient reports worsening anxiety and is requesting medication; he is currently receiving therapy for PTSD at the [facility]. A referral will be made for a psychiatry consultation service through [facility]. The psychiatrist will call the patient, perform an evaluation, and send a recommendation for an appropriate medication to manage his symptoms. (3) PTSD (post-traumatic stress disorder): Code(s): F43.10 - Post-traumatic stress disorder, unspecified Category: Medical Plan: The patient reports worsening anxiety and is requesting medication; he is currently receiving therapy for PTSD at the [facility]. A referral will be made for a psychiatry consultation service through [facility]. The psychiatrist will call the patient, perform an evaluation, and send a recommendation for an appropriate medication to manage his symptoms. (4) Right knee pain: Code(s): M25.561 - Pain in right knee Category: Medical Plan: The patient has developed new, significant right knee pain without an acute injury. An X-ray of the right knee will be ordered to assess for underlying pathology. A referral for physical therapy at [facility] in [place] will be placed. An MRI may be considered later depending on the X-ray findings and orthopedic evaluation. (5) Chronic low back pain: Code(s): M54.50 - Low back pain, unspecified; G89.29 - Other chronic pain Category: Medical Plan: The patient has multiple chronic joint issues, including persistent left knee pain despite prior physical therapy, and low back pain. A referral will be placed to Orthopedics for a comprehensive evaluation of his right knee, left knee, and low back pain. (6) Tear of meniscus of left knee: Code(s): S83.207A - Unspecified tear of unspecified meniscus, current injury, left knee, initial encounter Category: Medical Plan: The patient has multiple chronic joint issues, including persistent left knee pain despite prior physical therapy, and low back pain. A referral will be placed to Orthopedics for a comprehensive evaluation of his right knee, left knee, and low back pain. Plan Plan Patient was informed and verbally consented to the use of an ambient scribe for clinic note documentation during this visit. 1. Bilateral Foot Pain The patient's symptoms of bilateral heel and arch pain, which are worse upon waking and after rest, are highly suggestive of plantar fasciitis, likely resulting from his career involving prolonged standing. A referral will be placed to podiatry for further evaluation and management. In the interim, the patient is advised to try [id number] shoe inserts and self-massage by rolling his foot on a ball. 2. Anxiety And Ptsd The patient reports worsening anxiety and is requesting medication; he is currently receiving therapy for PTSD at the [facility]. A referral will be made for a psychiatry consultation service through [facility]. The psychiatrist will call the patient, perform an evaluation, and send a recommendation for an appropriate medication to manage his symptoms. 3. Right Knee Pain The patient has developed new, significant right knee pain without an acute injury. An X-ray of the right knee will be ordered to assess for underlying pathology. A referral for physical therapy at [facility] in [place] will be placed. An MRI may be considered later depending on the X-ray findings and orthopedic evaluation. 4. Left Knee And Low Back Pain The patient has multiple chronic joint issues, including persistent left knee pain despite prior physical therapy, and low back pain. A referral will be pl aced to Orthopedics for a comprehensive evaluation of his right knee, left knee, and low back pain. I discussed the plan for the patient's multiple complaints. For the bilateral foot pain, I explained that it sounds like plantar fasciitis and that I would refer him to Podiatry. For his worsening anxiety, I explained the referral process for a psychiatry consultation, where a specialist will contact him to discuss medication options and will then send me their recommendations. For his various joint pains including his back, left knee, and right knee, I recommended a referral to Orthopedics for a comprehensive evaluation. I told him that Orthopedics may offer treatments such as injections, and he stated he prefers to avoid them. For the right knee specifically, I ordered an X-ray to be done first, as well as a referral to physical therapy. I informed him that all referrals should result in a call to him within a month. We confirmed his existing follow-up appointment in about two weeks. Orders: Orders PT Evaluation and Treatment Today M25.561 - Pain in right knee, M72.2 - Plantar fascial fibromatosis XR knee RT 4V Today M25.561 - Pain in right knee Referrals Podiatry Referral M72.2 - Plantar fascial fibromatosis Psychiatry Outpatient Consultation Service F41.9 - Anxiety disorder, unspecified, F43.10 - Post-traumatic stress disorder, unspecified Orthopedics Referral G89.29 - Other chronic pain, M25.561 - Pain in right knee, M51.26 - Other intervertebral disc displacement, lumbar region, M51.369 - Other intervertebral disc degeneration, lumbar region without mention of lumbar back pain or lower extremity pain, M54.50 - Low back pain, unspecified, S83.207A - Unspecified tear of unspecified meniscus, current injury, left knee, initial encounter, S83.519A - Sprain of anterior cruciate ligament of unspecified knee, initial encounter Psychiatry Referral F41.9 - Anxiety disorder, unspecified, F43.10 - Post- traumatic stress disorder, unspecified Patient Instructions: - You will receive referrals for Orthopedics (for knee and back pain), Podiatry (for foot pain), and a psychiatry consultation (for anxiety). - You should be called to schedule these appointments within a month. - If you do not hear from them in a month, please contact our office. - Please get an X-ray of your right knee. - You will receive a separate referral for physical therapy for your right knee at [facility]. - For your foot pain, you can try using shoe inserts and rolling your foot on a tennis ball for relief. - Keep your upcoming appointments with Dermatology and Gastroenterology. - Keep your follow-up appointment with our office scheduled for October 10.
== END 2025-09-25 09:26 | disposition home or self-care (01) ==
LOC: HO.HMCSH 09:00
PROVIDERS: PCP Internal Medicine; Visit Provider Physician Assistant Medical
DX: M72.2 Plantar fascial fibromatosis (principal); F41.9 Anxiety disorder, unspecified; F43.10 Post-traumatic stress disorder, unspecified; M25.561 Pain in right knee; M54.50 Low back pain, unspecified; G89.29 Other chronic pain; S83.207A Unspecified tear of unspecified meniscus, current injury, left knee, initial encounter

== ENCOUNTER → 2025-09-25 09:00 | Outpatient (BNVA) | payer OTHER, SELFPAY | PROVIDERS: PCP Internal Medicine; Visit Provider Physician Assistant Medical | DX: M72.2 Plantar fascial fibromatosis (principal); F41.9 Anxiety disorder, unspecified; F43.10 Post-traumatic stress disorder, unspecified; M25.561 Pain in right knee; M54.50 Low back pain, unspecified; G89.29 Other chronic pain; S83.207A Unspecified tear of unspecified meniscus, current injury, left knee, initial encounter; Z13.39 Encounter for screening examination for other mental health and behavioral disorders; Z13.31 Encounter for screening for depression | CPT/HCPCS: 96127; 99212 ==

== ENCOUNTER 2025-10-10 08:58 | Outpatient (AMB) | payer OTHER, SELFPAY ==
--- NOTE | 2025-10-10 08:45 | MHC.PC.OV ---
Vital Signs 10/10/25 09:01 Height 6 ft Weight 185 lb BMI 25.1 BP 116/70 Blood Pressure Location Rt brachial Pulse 75 Pulse Source Pulse Oximeter Temp 97.3 F Pulse Oximetry (%) 99 Intake Visit Reasons: 6 month follow up Allergies No Known Allergies Allergy (Verified 10/10/25 09:01) Tobacco use date assessed: 04/17/25 Dental Screening Dental Screen Date: 04/17/25 [facility] Medical History (Updated 09/25/25 @ 09:43 by Minerva Anton PA-C) Plantar fasciitis Plantar fasciitis, bilateral Right knee pain PTSD (post-traumatic stress disorder) Annular tear of lumbar disc Lumbar disc herniation Pure hypercholesterolemia, unspecified Hyperlipidemia LDL goal <100 Anxiety Colon cancer screening ACL sprain Tear of meniscus of left knee Chronic low back pain Establishing care with new doctor, encounter for Family history of colon cancer Family history of melanoma Atypical nevi Family History Father BP (high blood pressure) Mother Family history of lung cancer Social History Housing: House Alcohol intake: current Alcohol intake frequency: a few times a week Patient Tobacco Use Status: Never used Tobacco service: Yes Current occupational status: employed Cognitive needs: No Hearing needs: No Vision needs: No Questionnaire PHQ-9 Over the last 2 weeks, how often have you been bothered by any of the following problems? 1. Little interest or pleasure in doing things: not at all 2. Feeling down, depressed, or hopeless: not at all 3. Trouble falling or staying asleep, or sleeping too much: not at all 4. Feeling tired or having little energy: not at all 5. Poor appetite or overeating: not at all 6. Feeling bad about yourself - or that you are a failure or have let yourself or your family down: not at all 7. Trouble concentrating on things, such as reading the newspaper or watching television: not at all 8. Moving or speaking so slowly that other people could have noticed. Or the opposite - being so fidgety or restless that you have been moving around a lot more than usual: not at all 9. Thoughts that you would be better off or of hurting yourself in some way: not at all Total score: 0 Depression Screening Interpretation: Negative Depression Screening Done: Yes 87485 - PHQ-9 Billing: Yes Source: Developed by Drs. Brody Porter, Trice Sneed, Fish Jones and colleagues, with an educational zeb from [employer]. Thrive Questionnaire Date Thrive assessed: 04/17/25 I am a: Patient What is your living situation today?: I have a steady place to live Within the past 12 months, did the food you bought not last and you didn't have the money to get more?: Never true Within the past 12 months, did you worry whether your food would run out before you got money to buy more?: Never true Do you have trouble paying for medicines?: No Do you have trouble getting transportation to medical appointments?: No Do you have trouble paying your heating and electricity bill?: No Do you have trouble taking care of your child, family member or friend?: No Do you have trouble with day-to-day activities such as bathing, preparing meals, shopping, managing finances, etc.?: No Are you currently unemployed and looking for a job?: No Are you interested in more education?: No Please select the resources that you would like help with: None THRIVE Score: 0 AUDIT C Alcohol Use Questionnaire (AUDIT-C) 1. How often do you have a drink containing alcohol?: 2-3 times a week 2. How many drinks containing alcohol do you have on a typical day when you are drinking?: 1 or 2 3. How often do you have six or more drinks on one occasion?: Never Total Score: 3 Score Reviewed/Action Taken: No DEANA-7 AMB Questionnaire DEANA-7 Date DEANA - 7 assessed: 04/17/25 Feeling nervous, anxious, or on edge: 1 = Several days Not being able to stop or control worryin = Several days Worrying too much about different things: 1 = Several days Trouble relaxin = Several days Being so restless that it is hard to sit still: 1 = Several days Becoming easily annoyed or irritable: 1 = Several days Feeling afraid as if something awful might happen: 1 = Several days Total DEANA-7 score (0-4 normal; 5-9 mild; 10-14 moderate; 15-21 severe): 7 Source: Developed by Drs. Brody Porter, Trice Sneed, Fish Jones and colleagues, with an educational zeb from [employer] DEANA-7 Assessment Billing DEANA-7 Assessment Tool: DEANA-7 Assessment 70665 Physical exam (Primary Care) Tobacco/Smoking Status: Tobacco use Status Tobacco use date assessed 04/17/25 04/17/25 15:11 Patient Tobacco Use Status Never used Tobacco 04/17/25 15:11 Depression Screening Interpretation: Negative Thrive Assessment: Date of Thrive Assessment Date Thrive assessed 04/17/25 04/17/25 15:11 Coding Additional Codes PHQ-9 - 89834 - PHQ-9 Billing: Yes ([id number]) DEANA-7 Assessment Billing - DEANA-7 Assessment Tool: DEANA-7 Assessment 87206 ([id number])
[2025-10-10 09:01] VITALS: BP 116/70; PULSE 75; TEMP 36.3; O2SAT 99; BMI 25.1
--- NOTE | 2025-10-10 09:09 | MHC.PC.OV ---
Vital Signs 10/10/25 09:01 Height 6 ft Weight 185 lb BMI 25.1 BP 116/70 Blood Pressure Location Rt brachial Pulse 75 Pulse Source Pulse Oximeter Temp 97.3 F Pulse Oximetry (%) 99 Intake Visit Reasons: 6 month follow up Allergies No Known Allergies Allergy (Verified 10/10/25 09:18) Medication List - Last Reconciled 10/10/25 by Minerva Anton PA-C No Known Home Meds Tobacco use date assessed: 04/17/25 Dental Screening Dental Screen Date: 04/17/25 HPI 6 month follow up HPI Details The patient is a 35-year-old male presenting for a follow-up visit to review referrals and address a new complaint. He was recently seen two weeks ago and received referrals for orthopedics, psychiatry, podiatry for plantar fasciitis, and physical therapy for knee pain. He reports he has made an appointment with orthopedics, but has not yet heard from psychiatry or podiatry. An order for a knee x-ray is pending. The patient reports new-onset erectile dysfunction, which he associates with episodes of anxiety. He has been purchasing medication for this issue on his own. Recent lab work was reviewed, showing a normal CBC and PSA level. His cholesterol was noted to be elevated, which he is actively working on. Social History - Substance Use: The patient reports recent alcohol consumption usually only on occasions. [facility] Medical History (Updated 10/10/25 @ 09:47 by Minerva Anton PA-C) Preventative health care Erectile dysfunction Plantar fasciitis Plantar fasciitis, bilateral Right knee pain PTSD (post-traumatic stress disorder) Annular tear of lumbar disc Lumbar disc herniation Pure hypercholesterolemia, unspecified Hyperlipidemia LDL goal <100 Anxiety Colon cancer screening ACL sprain Tear of meniscus of left knee Chronic low back pain Establishing care with new doctor, encounter for Family history of colon cancer Family history of melanoma Atypical nevi Family History Father BP (high blood pressure) Mother Family history of lung cancer Social History Housing: House Alcohol intake: current Alcohol intake frequency: a few times a week Patient Tobacco Use Status: Never used Tobacco service: Yes Current occupational status: employed Cognitive needs: No Hearing needs: No Vision needs: No Questionnaire PHQ-9 Over the last 2 weeks, how often have you been bothered by any of the following problems? 1. Little interest or pleasure in doing things: not at all 2. Feeling down, depressed, or hopeless: not at all 3. Trouble falling or staying asleep, or sleeping too much: not at all 4. Feeling tired or having little energy: not at all 5. Poor appetite or overeating: not at all 6. Feeling bad about yourself - or that you are a failure or have let yourself or your family down: not at all 7. Trouble concentrating on things, such as reading the newspaper or watching television: not at all 8. Moving or speaking so slowly that other people could have noticed. Or the opposite - being so fidgety or restless that you have been moving around a lot more than usual: not at all 9. Thoughts that you would be better off or of hurting yourself in some way: not at all Total score: 0 Depression Screening Interpretation: Negative Depression Screening Done: Yes 09281 - PHQ-9 Billing: Yes Source: Developed by Drs. Brody Porter, Trice Sneed, Fish Jones and colleagues, with an educational zeb from [employer]. Thrive Questionnaire Date Thrive assessed: 04/17/25 I am a: Patient What is your living situation today?: I have a steady place to live Within the past 12 months, did the food you bought not last and you didn't have the money to get more?: Never true Within the past 12 months, did you worry whether your food would run out before you got money to buy more?: Never true Do you have trouble paying for medicines?: No Do you have trouble getting transportation to medical appointments?: No Do you have trouble paying your heating and electricity bill?: No Do you have trouble taking care of your child, family member or friend?: No Do you have trouble with day-to-day activities such as bathing, preparing meals, shopping, managing finances, etc.?: No Are you currently unemployed and looking for a job?: No Are you interested in more education?: No Please select the resources that you would like help with: None THRIVE Score: 0 AUDIT C Alcohol Use Questionnaire (AUDIT-C) 1. How often do you have a drink containing alcohol?: 2-3 times a week 2. How many drinks containing alcohol do you have on a typical day when you are drinking?: 1 or 2 3. How often do you have six or more drinks on one occasion?: Never Total Score: 3 Score Reviewed/Action Taken: No DEANA-7 AMB Questionnaire DEANA-7 Date DEANA - 7 assessed: 04/17/25 Feeling nervous, anxious, or on edge: 1 = Several days Not being able to stop or control worryin = Several days Worrying too much about different things: 1 = Several days Trouble relaxin = Several days Being so restless that it is hard to sit still: 1 = Several days Becoming easily annoyed or irritable: 1 = Several days Feeling afraid as if something awful might happen: 1 = Several days Total DEANA-7 score (0-4 normal; 5-9 mild; 10-14 moderate; 15-21 severe): 7 Source: Developed by Drs. Brody Porter, Trice Sneed, Fish Jones and colleagues, with an educational zeb from [employer]. DEANA-7 Assessment Billing DEANA-7 Assessment Tool: DEANA-7 Assessment 01383 Review of Systems Const Details: - Psychiatric: Reports anxiety, particularly related to his employment. - Genitourinary: Reports erectile dysfunction. - Denies hematuria. - Musculoskeletal: Reports knee pain and plantar fasciitis. - Gastrointestinal: Denies bloody stools. All systems reviewed & are unremarkable except as noted in HPI and below Physical exam (Primary Care) Vital Signs: Last Vital Signs Temp 97.3 F 10/10/25 09:01 Pulse 75 10/10/25 09:01 BP 116/70 10/10/25 09:01 Pulse Ox 99 10/10/25 09:01 Care Plan Goal for BP management: <140/90 at Goal BMI result Body Mass Index 25.1 BMI Assessment/Plan discussion: High BMI High, discussed plan: lifestyle, weight reduction, dietary, physical activity, alcohol moderation and other Tobacco/Smoking Status: Tobacco use Status Tobacco use date assessed 04/17/25 10/10/25 09:12 Patient Tobacco Use Status Never used Tobacco 10/10/25 09:12 PHQ-9: PHQ-9 Score PHQ-9: Total score 0 10/10/25 09:12 Depression Screening Interpretation: Negative Thrive Assessment: Date of Thrive Assessment Date Thrive assessed 04/17/25 10/10/25 09:12 Const Other: Appearance: Alert. Oriented X3. No acute distress. Head: Normal external exam. Normocephalic. Atraumatic. Eyes: Pupils are equal, round, and reactive to light. Extraocular movements intact. Conjunctiva and sclera normal. Eyelids normal. Throat: Moist mucous membranes. Neck: Normal inspection. Neck supple. Full range of motion. Cardiovascular: Normal heart rate and rhythm. Respiratory: No respiratory distress. Painless inspiration. Back: Full range of motion noted. Skin: Skin warm and dry. Normal skin color. Extremities: Extremities exhibit normal range of motion Office Procedures Flu Questionnaire Does the patient have a severe egg allergy?: No Does the patient have severe life threatening allergies?: No Does the patient have a fever or illness today?: No Has the patient ever had Guillain-[place] Syndrome?: No Has the patient ever had any past reaction to a flu shot?: No Immunizations Fluarix [id number] (PF) 45 mcg (15 mcg x 3)/0.5 mL IM syringe Performing Provider: Minerva Anton PA-C [facility] Documented (not given) by: Sandie Jensen on 10/10/25 09:12 Reason Not Given: Received Previously Results Reviewed Results Reviewed: - Labs: Recent blood work revealed a normal CBC and a normal PSA. - Cholesterol was elevated. Coding Level of Care Code Est Pt Level 4 (80283) Complex EM visit Add On G2211 Diagnoses Erectile dysfunction N52.9 [facility] care Z00.00 Pure hypercholesterolemia, unspecified E78.00 Hyperlipidemia LDL goal <100 E78.5 Additional Codes PHQ-9 - 83796 - PHQ-9 Billing: Yes ([id number]) DEANA-7 Assessment Billing - DEANA-7 Assessment Tool: DEANA-7 Assessment 84938 ([id number]) Assessment & Plan Assessment & Plan (1) Erectile dysfunction: Code(s): N52.9 - Male erectile dysfunction, unspecified Category: Medical Plan: The patient reports erectile dysfunction associated with anxiety. A prescription for Cialis 10 mg, 20 tablets, will be sent to [facility], to be taken 20-30 minutes prior to intercourse, with the option to increase to 20 mg if needed. Labs will be ordered to evaluate testosterone, DHEA, LH, and FSH levels, along with a urinalysis. The patient was instructed that the testosterone test must be a fasting, morning draw between 7 AM and 10 AM, and to abstain from sexual activity, heavy exercise, and alcohol for 24 hours prior. A referral to urology will be placed. (2) Preventative health care: Code(s): Z00.00 - Encounter for general adult medical examination without abnormal findings Category: Medical Plan: The patient is following up on multiple referrals. For plantar fasciitis, the patient was provided the contact number for podiatry to schedule an appointment. For his knee pain, an order for an x-ray is in the system, and a physical therapy referral is processing. Patient will continue to monitor for a call from psychiatry and was advised to follow up with gastroenterology. (3) Pure hypercholesterolemia, unspecified: Code(s): E78.00 - Pure hypercholesterolemia, unspecified Category: Medical Plan: The patient's recent cholesterol was elevated, and he reports he is working on it. A lipid panel will be checked again at a future visit. (4) Hyperlipidemia LDL goal <100: Code(s): E78.5 - Hyperlipidemia, unspecified Category: Medical Plan: The patient's recent cholesterol was elevated, and he reports he is working on it. A lipid panel will be checked again at a future visit. Plan Plan Patient was informed and verbally consented to the use of an ambient scribe for clinic note documentation during this visit. 1. Erectile Dysfunction The patient reports erectile dysfunction associated with anxiety. A prescription for Cialis 10 mg, 20 tablets, will be sent to [email or web address], to be taken 20-30 minutes prior to intercourse, with the option to increase to 20 mg if needed. Labs will be ordered to evaluate testosterone, DHEA, LH, and FSH levels, along with a urinalysis. The patient was instructed that the testosterone test must be a fasting, morning draw between 7 AM and 10 AM, and to abstain from sexual activity, heavy exercise, and alcohol for 24 hours prior. A referral to urology will be placed. 2. Referral Management And Preventative Care The patient is following up on multiple referrals. For plantar fasciitis, the patient was provided the contact number for podiatry to schedule an appointment. For his knee pain, an order for an x-ray is in the system, and a physical therapy referral is processing. Patient will continue to monitor for a call from psychiatry and was advised to follow up with gastroenterology. 3. Hypercholesterolemia The patient's recent cholesterol was elevated, and he reports he is working on it. A lipid panel will be checked again at a future visit. I discussed the patient's new complaint of erectile dysfunction and its possible association with his anxiety. I explained the plan to prescribe Cialis 10 mg and order lab work, including a testosterone panel. I counseled him on the specific requirements for the testosterone blood draw to ensure accurate results, including fasting for 8 hours and avoiding sexual activity, exercise, and alcohol for 24 hours prior. We discussed the potential high cost of the medication at his preferred pharmacy and the alternative option of using [facility] pharmacy, which may be cheaper. I advised a referral to urology for further evaluation. We also reviewed the status of his outstanding referrals. Orders: Orders Dihydrotestosterone Today Z00.00 - Encounter for general adult medical examination without abnormal findings Lutenizing Hormone Today Z00.00 - Encounter for general adult medical examination without abnormal findings Prolactin Today Z00.00 - Encounter for general adult medical examination without abnormal findings UA CC w/rflx Micro + Cult Today Z00.00 - Encounter for general adult medical examination without abnormal findings Influenza [id number] Immunization Today Z23 - Encounter for immunization Testosterone, Free/Total Today Z00.00 - Encounter for general adult medical examination without abnormal findings Testosterone, Total Today Z00.00 - Encounter for general adult medical examination without abnormal findings DHEA Sulfate Today Z00.00 - Encounter for general adult medical examination without abnormal findings Follicle Stimulating Hormone Today Z00.00 - Encounter for general adult medical examination without abnormal findings Estradiol Ultra Sensitive Today N52.9 - Male erectile dysfunction, unspecified Referrals Urology Referral N52.9 - Male erectile dysfunction, unspecified Medications: New tadalafil (Cialis) administer approximately 30min before sexual activity; do not use more than 1 dose per 24hrs 10 mg PO DAILY PRN 20 tabs 6RF sexual activity Patient Instructions: - Take one Cialis 10 mg tablet by mouth 20-30 minutes before sexual activity. - You may increase the dose to 20 mg if the 10 mg dose is not effective. - If your pharmacy charges too much for the Cialis, call our office, and we can send the prescription to a different pharmacy that may be cheaper. - You need to get blood work done to check your testosterone levels. - For this test, you must go to the lab between 7 AM and 10 AM, and you must fast (not eat) for at least 8 hours beforehand. - Do not have any sexual activity, heavy exercise, or alcohol for 24 hours before the blood test. - Go for your knee X-ray; the order is already in the system. - Call the podiatry office to make an appointment for your foot pain (plantar fasciitis). - If you do not hear from the psychiatrist's office by the end of next week, please call them. - Remember to schedule your appointment with the audio/visual manager.
== END 2025-10-10 09:33 | disposition home or self-care (01) ==
LOC: HO.HMCSH 08:58
PROVIDERS: PCP Physician Assistant Medical; Visit Provider Physician Assistant Medical
DX: N52.9 Male erectile dysfunction, unspecified (principal); Z00.00 Encounter for general adult medical examination without abnormal findings; E78.00 Pure hypercholesterolemia, unspecified; E78.5 Hyperlipidemia, unspecified; Z23 Encounter for immunization

== ENCOUNTER → 2025-10-10 08:58 | Outpatient (BNVA) | payer OTHER, SELFPAY | PROVIDERS: PCP Physician Assistant Medical; Visit Provider Physician Assistant Medical | DX: Z13.31 Encounter for screening for depression (principal); E78.00 Pure hypercholesterolemia, unspecified; E78.5 Hyperlipidemia, unspecified | CPT/HCPCS: 90471; 96127; 99212 ==

== ENCOUNTER 2025-10-12 07:31 | Outpatient (REF) | payer OTHER, SELFPAY ==
--- NOTE | ~2025-10-12 | XR_ITS ---
EXAMINATION: XR KNEE, RIGHT CLINICAL INFORMATION: M25.561 - Pain in right knee COMPARISON: None available. TECHNIQUE: AP oblique and lateral views of the right knee. FINDINGS: No acute cortical disruption or malalignment. No lytic or blastic lesions. No suprapatellar bursa joint effusion. No metallic or radiopaque foreign body. No vascular calcifications. No soft tissue calcifications. XR/XR knee RT 4V IMPRESSION: Normal x-ray, right knee. Electronically signed by: Amish East MD 10/12/2025 12:16 PM RADHA
--- OUTSIDE RECORDS SUMMARY | 2025-10-12 07:34 | XMS_ITS | Patient Health Record ---
Author Organization [facility] Address [address] [place] [address] Care Team Providers Care Parts Sales Advisor Name Role Phone GENI DOHERTY Unavailable [phone] Allergies No Known Allergies Reason For Referral No Information Medications Medication SIG (Take, Route, Frequency, Duration) Notes Start Date End Date Status Ketorolac Tromethamine 10 MG Tablet 1 tablet with food or milk as needed Orally three times a day; Duration: 10 days Active Cyclobenzaprine HCl 10 MG Tablet 1 tablet Orally Three times a day; Duration: 30 days Active Problems Problem Type SNOMED Code ICD Code Onset Dates Problem Status W/U Status Risk Notes Problem Anxiety (67044050) Anxiety (F41.9) Active confirmed Problem Chronic pain (39236220) Chronic pain (G89.29) Active confirmed Problem Generalized anxiety disorder (39978377) Anxiety, generalized (F41.1) Active confirmed Plan Of Treatment Pending Test Test Name Order Date CBC With Differential/Platelet Comp. Metabolic Panel (14) 03/23/2023 Insurance Providers Payer Name Payer Address Payer Phone Subscriber Number Group Number Insured Name Patient Relationship to Insured Coverage Start Date Coverage End Date [facility] [address] [place] [phone] [id number] EDIE LORENZO Self - patient is the insured Medical (General) History Medical History History ICD Code consistently throwing back out Surgical History Surgery Date(Month/Year)
[2025-10-12 10:52] LABS: Appearance Urine Clear; Glucose Urine UA Negative (Negative); PH 6.0 (5.0-9.0); Specific Gravity - Urine 1.020 (1.005-1.025); UMIC TRIGGER UACC YES
[2025-10-12 11:12] LABS: UACC Culture Trigger YES
[2025-10-13 05:48] LABS: Follicle Stimulating Hormone 4.4 mIU/mL (1.4-12.8)
[2025-10-18 17:43] LABS: Testosterone, Free 98.1 pg/mL (35.0-155.0)
[2025-10-19 04:09] LABS: Estradiol Ultra Sensitive 21 pg/mL (< OR = 29)
== END 2025-10-12 07:32 | disposition home or self-care (01) ==
LOC: HO.HMGCX 07:31
PROVIDERS: PCP Physician Assistant Medical; Visit Provider Physician Assistant Medical
DX: Z00.00 Encounter for general adult medical examination without abnormal findings (principal); N52.9 Male erectile dysfunction, unspecified; M25.561 Pain in right knee
CPT/HCPCS: 36415; 73564; 81001; 82627; 82642; 82670; 83001; 83002; 84146; 84402; 84403; 87086

== ENCOUNTER → 2025-10-12 12:00 | Outpatient (BNV) | payer OTHER, SELFPAY | PROVIDERS: PCP Physician Assistant Medical; Visit Provider Radiology Diagnostic Radiology | DX: M25.561 Pain in right knee (principal) | CPT/HCPCS: 73564 ==

== ENCOUNTER 2025-11-06 08:56 | Outpatient (REF) | payer OTHER, SELFPAY | END 2025-11-06 08:57 | disposition home or self-care (01) | LOC: HO.HOSX 08:56 | PROVIDERS: PCP Physician Assistant Medical; Visit Provider Student in an Organized Health Care Education/Training Program | DX: M72.2 Plantar fascial fibromatosis (principal) | CPT/HCPCS: 99202 ==

== ENCOUNTER 2025-11-06 08:56 | Outpatient (AMB) | payer OTHER, SELFPAY ==
[2025-11-06 09:16] VITALS: BMI 25.1
--- NOTE | 2025-11-06 09:16 | A.OFFVIS_ITS ---
Vital Signs 11/06/25 09:16 Height 6 ft Weight 185 lb BMI 25.1 Intake Visit Reasons: Plantar fascial fibromatosis Intake Note: Curry is a 35 year old male who presents to the office today as a new patient visit referred by his PCP Minerva Anton for Plantar fascial fibromatosis. Pt states this has been mykel on for about 1 year and the pain is located on bilateral heel and occasional runs to the arch. The right foot pain is more intense then the left. He has tried stretching exercises and has found no relief. No previous imaging has been done. Allergies No Known Allergies Allergy (Verified 10/10/25 09:18) HPI Comments Details: The patient is a 35 year old male with a past medical history as seen below presenting with bilateral heel pain. He reports having pain in his feet for a year, specifically in the heels and sometimes extending into the arches. The pain is particularly notable with the first step in the morning and after a long day of activities. He has not previously tried any specific treatments, such as shoe inserts or medication. Patient states he has tried some stretching exercises and consistently previously. The patient reports a history of knee and back problems, for which he has received physical therapy. He denies any recent pedal injuries. He denies any other pedal concerns. [facility] Medical History Preventative health care Erectile dysfunction Plantar fasciitis Plantar fasciitis, bilateral Right knee pain PTSD (post-traumatic stress disorder) Annular tear of lumbar disc Lumbar disc herniation Pure hypercholesterolemia, unspecified Hyperlipidemia LDL goal <100 Anxiety Colon cancer screening ACL sprain Tear of meniscus of left knee Chronic low back pain Establishing care with new doctor, encounter for Family history of colon cancer Family history of melanoma Atypical nevi Family History Father BP (high blood pressure) Mother Family history of lung cancer Social History (Reviewed 10/10/25 @ 12: by Minerva Anton PA-C) Housing: House Alcohol intake: current Alcohol intake frequency: a few times a week Patient Tobacco Use Status: Never used Tobacco service: Yes Current occupational status: employed Cognitive needs: No Hearing needs: No Vision needs: No Review of Systems Const Details: - Musculoskeletal: Reports bilateral heel pain which sometimes radiates to the arches. Reports history of bilateral knee pain and back pain. All systems reviewed & are unremarkable except as noted in HPI and below Physical Exam Vital Signs: BMI result Body Mass Index 25.1 Extrem Other: Bilateral lower extremity focused physical exam: Derm: No open lesions abrasions or wounds noted. No hyperkeratotic or macerated areas noted. Skin supple and turgor within normal limits. No ecchymosis, erythema, or discoloration noted. No clinical signs of infection noted. Vasc: DP/PT pulses palpable. Capillary refill time less than 3 seconds. T emperature gradient warm to warm. Pedal hair present. No varicosities noted. No edema noted. Neuro: Protective sensation is grossly intact. MSK: Pain on palpation to the medial and central aspects of the calcaneus. Pain on palpation to the medial plantar arches. Positive windlass mechanism. Range of motion of forefoot, hindfoot, and ankles within normal limits. No crepitus or fluctuance noted. Mildly antalgic gait unassisted noted. Pes planus foot type. Results Reviewed Results Reviewed: Ordered bilateral foot weightbearing three-view x-rays to be performed prior to next visit. Assessment & Plan Assessment & Plan (1) Plantar fasciitis, bilateral: Code(s): M72.2 - Plantar fascial fibromatosis Category: Medical (2) Bilateral foot pain: Code(s): M79.671 - Pain in right foot; M79.672 - Pain in left foot Category: Medical Plan Patient was informed and verbally consented to the use of an ambient scribe for clinic note documentation during this visit. I discussed with the patient that his symptoms are consistent with a diagnosis of plantar fasciitis. I outlined an initial conservative treatment plan, including sending a prescription for a Medrol Dosepak to his pharmacy, recommending Powerstep [id number] inserts, daily stretching exercises. I also advised him to avoid walking barefoot to minimize strain on the plantar fascia. I explained the sequential treatment options if his pain does not resolve, which include a night splint, cortisone injections, physical therapy, and surgical intervention as a final option. I placed an order for bilateral foot X-rays to rule out associated pathology such as a heel spur. The patient was agreeable to the plan and will follow up in three weeks for re-evaluation. - Prescribed Medrol Dosepak. - Advised patient to start stretching exercises, provided patient with instructional form. - Recommended obtaining [id number] Powerstep inserts for arch support and to avoid being barefoot. - Continue wearing supportive shoe gear. - Placed an order for bilateral foot X-rays to assess for bone spurs, to be completed before the follow-up visit. - Discussed a stepwise treatment approach if symptoms persist, including a night splint, cortisone injections, physical therapy, and potentially surgery as a last resort. RTC in 3 weeks. Orders: Orders XR Foot Demian 3V Today M72.2 - Plantar fascial fibromatosis, M79.671 - Pain in right foot, M79.672 - Pain in left foot Medications: New methylprednisolone (Medrol (Salo)) PO PER PKG DIR 21 ea 0RF M72.2 - Plantar fascial fibromatosis, M79.671 - Pain in right foot, M79.672 - Pain in left foot Coding Level of Care Code New Pt Level 4 (13780) Diagnoses Plantar fasciitis, bilateral M72.2 Bilateral foot pain M79.671; M79.672 Time Spent (min) 46
== END 2025-11-06 09:31 | disposition home or self-care (01) ==
LOC: HO.HPODS 08:57
PROVIDERS: PCP Physician Assistant Medical; Visit Provider Student in an Organized Health Care Education/Training Program
DX: M72.2 Plantar fascial fibromatosis (principal); M79.671 Pain in right foot; M79.672 Pain in left foot
CPT/HCPCS: 99204

== ENCOUNTER 2025-11-09 10:52 | Outpatient (AMB) | payer OTHER, SELFPAY ==
--- NOTE | 2025-11-09 10:53 | A.OFFPSYCH_ITS ---
Intake Intake Visit Reasons: consultation [employer] Required: No Allergies No Known Allergies Allergy (Verified 10/10/25 09:18) Medication List - Last Reconciled 11/09/25 by Vangie Miranda APRN methylprednisolone (Medrol (Salo)) PO PER PKG DIR tadalafil (Cialis) 10 mg PO DAILY PRN HPI- Psychiatric Chief Complaint: consultation HPI Narrative: Pt with anxiety, PTSD, currently in [employer]. Pt reported he is currently active with a therapist, but would like to explore medication options to treat anxiety and PTSD symptoms. PHQ9=7 and GAD7= 14. 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 He experienced extreme stress in andlife threatening experiences. He has hypervigilance, anxiety, panic attacks, nightmares, avoidance of trauma reminders. Pt has trouble being in public, being in crowds. he can not go ot a movie theatre or concdert; he brought his 4 year old to the movies hoping they could enjoy a movie but he had to leave after a few minutes; he was disappointed and felt bad for his daughter. Pt reports chronic poor sleep with restlessness, easily awoken, wakes with panic attacks and nightmares. He reports difficulty relaxing. he has trouble letting down his guard. He worries. He denies SI or Hi. He reports he is in pain every day from back pain, headaces, knee pain. Past Psychiatric History: outpt Subjective Subjective Medication Compliance: Yes Side effects from medications: No Review of Systems Medical Review of Systems: unchanged Mental Status Exam Mental Status Exam Patient Appearance: Well Grooomed and Appropriate Patient Orientation: Person, Place, Time and Situation Level of Consciousness: Awake, Restless and Alert Patient Behavior: Appropriate, Talkative and Cooperative Mood Description: Anxious and Sad Affect Description: Anxious and Sad Patient Cognition Impaired: No Ability to Follow Directions: Good Speech Pattern: Appropriate and Excessive Memory Description: Intact Hallucinations: None Delusions: Not Present Thought Process: Distracted and Rumination Thought Content: positive for Preoccupation Judgement: Good Assessment and Plan Assessment & Plan (1) PTSD (post-traumatic stress disorder): Status: Acute Code(s): F43.10 - Post-traumatic stress disorder, unspecified (2) Generalized anxiety disorder with panic attacks: Status: Acute Code(s): F41.1 - Generalized anxiety disorder; F41.0 - Panic disorder [episodic paroxysmal anxiety] Medications: New sertraline (Zoloft) 100 mg PO DAILY 90 tabs 0RF hydroxyzine HCl 25 mg PO BID PRN 60 tabs 0RF anxiety/sleep Counseling and coordination of Care Pt. Self Management counseling: Maintenance-social rhythm, Mod caffeine/ETOH intake, Nutrition education and improvement, Sleep hygiene and Problem solving Medication management counseling: Effectiveness, Side effects, Dosing range, Duration, Drug interaction and Adherence Diagnosis and Prognosis Counseling: Accuracy of diagnosis, Prognosis over time, Impact of diagnosis on life functions, Problematic behaviors secondary to diagnosis and Adequacy of current interventions Details: I spent 75 minutes reviewing the record, seeing the patient and documenting in the medical record. Counseling provided to the patient/caregiver as outlined below. Addressed patient/caregiver concerns regarding current medication regime including effective adherence. Addressed patient/caregiver concerns regarding diagnosis and prognosis including accuracy of diagnosis, prognosis over time, impact of diagnosis. Addressed patient/caregiver concerns regarding impact of recent stressors. [facility] Medical History (Updated 11/09/25 @ 16:12 by Vangie Miranda APRN) Bilateral foot pain Preventative health care Erectile dysfunction Plantar fasciitis Plantar fasciitis, bilateral Right knee pain PTSD (post-traumatic stress disorder) Annular tear of lumbar disc Lumbar disc herniation Pure hypercholesterolemia, unspecified Hyperlipidemia LDL goal <100 Anxiety Colon cancer screening ACL sprain Tear of meniscus of left knee Chronic low back pain Establishing care with new doctor, encounter for Family history of colon cancer Family history of melanoma Atypical nevi Family History Father BP (high blood pressure) Mother Family history of lung cancer Social History Housing: House Alcohol intake: current Alcohol intake frequency: a few times a week Patient Tobacco Use Status: Never used Tobacco service: Yes Current occupational status: employed Cognitive needs: No Hearing needs: No Vision needs: No Coding Level of Care Code Psych Diag Eval w/Med (07813) Diagnoses PTSD (post-traumatic stress disorder) F43.10 Generalized anxiety disorder with panic attacks F41.1; F41.0
== END 2025-11-09 11:40 | disposition home or self-care (01) ==
LOC: HO.HOP 10:52
PROVIDERS: PCP Physician Assistant Medical; Visit Provider Clinical Nurse Specialist Psychiatric/Mental Health
DX: F43.10 Post-traumatic stress disorder, unspecified (principal); F41.1 Generalized anxiety disorder; F41.0 Panic disorder [episodic paroxysmal anxiety]
CPT/HCPCS: 90792

== ENCOUNTER → 2025-11-09 10:52 | Outpatient (BNVA) | payer OTHER, SELFPAY | PROVIDERS: PCP Physician Assistant Medical; Visit Provider Clinical Nurse Specialist Psychiatric/Mental Health | DX: F41.1 Generalized anxiety disorder (principal); F43.10 Post-traumatic stress disorder, unspecified; F41.0 Panic disorder [episodic paroxysmal anxiety] | CPT/HCPCS: 90792 ==